=== PATIENT | male | born 1950 | race Caucasian/White ===

== ENCOUNTER 2017-11-16 06:27 | Day surgery (SDC) | payer MEDICARE, OTHER ==
[~2017-11-16] VITALS: Ht 185.4 cm; Wt 80.7 kg
[~2017-11-16 06:27] MED LIST: HYDROMORPHONE HC2 MG PO; NO HOME MEDICATIONS; PERCOCET 5/321 UDTAB PO; PHENERGAN 25 TA25 MG PO; PHENERGAN25 MG RC
[2017-11-16 06:55] VITALS: BP 130/83; PULSE 96; TEMP 97.8
[2017-11-16] MEDS ORDERED: LIPITOR 10MG10 MG PO (07:02)
[2017-11-16] MEDS ORDERED: ADVIL200 MG PO (07:03)
[2017-11-16 08:00] VITALS: BP 110/76; PULSE 80; TEMP 97.7
[2017-11-16 08:15] VITALS: BP 117/73; PULSE 75
[2017-11-16 08:30] VITALS: BP 107/74; PULSE 74
== END 2017-11-16 08:45 | disposition home or self-care (01) ==
LOC: SDCO 06:27
DX: Z12.11 Encounter for screening for malignant neoplasm of colon (principal); Z86.010 Personal history of colon polyps; D12.5 Benign neoplasm of sigmoid colon
CPT/HCPCS: OP; J2250; J3010; J7030